=== PATIENT | female | born 1965 | race Caucasian/White ===

== ENCOUNTER 2022-01-22 10:10 | Outpatient (REF) | payer BC, SELFPAY ==
[2022-01-22 14:06] LABS: Free T4 (Free Thyroxine) 1.29 ng/dL (0.71-1.85); Thyroid Stimulating Hormone 0.66 uIU/mL (0.32-4.0)
== END 2022-01-22 10:11 | disposition home or self-care (01) ==
LOC: HO.WFDLDS 10:10
PROVIDERS: PCP Hospitalist; Visit Provider Pediatrics
DX: E06.3 Autoimmune thyroiditis (principal)
CPT/HCPCS: 36415; 84439; 84443

== ENCOUNTER 2022-02-21 10:03 | Outpatient (REF) | payer BC, SELFPAY ==
[2022-02-21 12:01] LABS: Estimated Average Glucose 111 mg/dL; Hemoglobin A1c % 5.5 %
[2022-02-21 12:28] LABS: Alanine Aminotransferase 33 U/L (0-31); Albumin Level 4.7 g/dL (3.5-5.0); Alkaline Phosphatase 92 U/L (39-117); Anion Gap 16 (12-20); Aspartate Amino Transferase 24 U/L (5-31); Bilirubin Total 0.4 mg/dL (0.0-1.0); Blood Urea Nitrogen 20 mg/dL (9-16); Calcium 10.1 mg/dL (8.4-10.2); Carbon Dioxide 26 mmol/L (22-29); Chloride 103 mmol/L (96-108); Cholesterol 230 mg/dL; Estimated Glomerular Filt Rate > 60; Glucose Fasting 92 mg/dL (60-99); HDL Cholesterol 55 mg/dL; LDL Cholesterol Calculated 151 mg/dl; Potassium 4.8 mmol/L (3.3-5.1); Sodium 140 mmol/L (135-145); Total Protein 7.4 g/dL (6.5-8.0); Triglycerides 120 mg/dL
[2022-02-21 12:33] LABS: Thyroid Stimulating Hormone 0.45 uIU/mL (0.32-4.0)
[2022-02-21 13:30] LABS: Folate > 20.0 ng/mL (> or = 4.0); Vitamin B12 727 pg/mL (200-900)
== END 2022-02-21 10:04 | disposition home or self-care (01) ==
LOC: HO.WFDLDS 10:03
PROVIDERS: Visit Provider Internal Medicine Endocrinology, Diabetes & Metabolism
DX: E88.81 Metabolic syndrome and other insulin resistance (principal); E06.3 Autoimmune thyroiditis
CPT/HCPCS: 36415; 80053; 80061; 82607; 82746; 83036; 84443

== ENCOUNTER 2022-05-28 11:34 | Outpatient (REF) | payer BC, SELFPAY ==
[2022-05-28 14:19] LABS: Cholesterol 220 mg/dL; Estimated Average Glucose 111 mg/dL; HDL Cholesterol 51 mg/dL; Hemoglobin A1c % 5.5 %; LDL Cholesterol Calculated 135 mg/dl; Triglycerides 172 mg/dL
[2022-05-28 14:43] LABS: Thyroid Stimulating Hormone 0.79 uIU/mL (0.32-4.0)
== END 2022-05-28 11:35 | disposition home or self-care (01) ==
LOC: HO.WFDLDS 11:34
PROVIDERS: Visit Provider Internal Medicine Endocrinology, Diabetes & Metabolism
DX: E06.3 Autoimmune thyroiditis (principal); E88.81 Metabolic syndrome and other insulin resistance
CPT/HCPCS: 36415; 80061; 83036; 84443

== ENCOUNTER 2022-10-25 10:11 | Outpatient (REF) | payer BC, SELFPAY ==
[2022-10-25 11:46] LABS: Estimated Average Glucose 114 mg/dL; Hemoglobin A1c % 5.6 %
[2022-10-25 12:04] LABS: Alanine Aminotransferase 30 U/L (0-31); Albumin Level 4.3 g/dL (3.5-5.0); Alkaline Phosphatase 62 U/L (39-117); Anion Gap 15 (12-20); Aspartate Amino Transferase 27 U/L (5-31); Bilirubin Total 0.4 mg/dL (0.0-1.0); Blood Urea Nitrogen 17 mg/dL (9-16); Calcium 9.7 mg/dL (8.4-10.2); Carbon Dioxide 26 mmol/L (22-29); Chloride 105 mmol/L (96-108); Cholesterol 187 mg/dL; Estimated Glomerular Filt Rate > 60; Glucose Random 95 mg/dL (60-115); HDL Cholesterol 52 mg/dL; LDL Cholesterol Calculated 112 mg/dl; Potassium 4.8 mmol/L (3.3-5.1); Sodium 141 mmol/L (135-145); Total Protein 6.7 g/dL (6.5-8.0); Triglycerides 117 mg/dL
[2022-10-25 12:06] LABS: Thyroid Stimulating Hormone 0.46 uIU/mL (0.32-4.0)
[2022-10-29 13:48] LABS: Alpha Fetoprotein 3.9 ng/mL
== END 2022-10-25 10:12 | disposition home or self-care (01) ==
LOC: HO.WFDLDS 10:11
PROVIDERS: PCP Hospitalist; Visit Provider Internal Medicine Endocrinology, Diabetes & Metabolism
DX: E88.81 Metabolic syndrome and other insulin resistance (principal); E06.3 Autoimmune thyroiditis
CPT/HCPCS: 36415; 80053; 80061; 82105; 83036; 84443

== ENCOUNTER 2023-08-13 09:31 | Outpatient (REF) | payer BC, SELFPAY ==
[2023-08-13 12:09] LABS: Anion Gap 11 (12-20); Blood Urea Nitrogen 17 mg/dL (9-16); Calcium 9.4 mg/dL (8.4-10.2); Carbon Dioxide 28 mmol/L (22-29); Chloride 105 mmol/L (96-108); Cholesterol 226 mg/dL (<200); Estimated Glomerular Filt Rate > 60; Glucose Random 104 mg/dL (60-115); HDL Cholesterol 55 mg/dL (>40); LDL Cholesterol Calculated 141 mg/dL (<100); Potassium 4.5 mmol/L (3.3-5.1); Sodium 139 mmol/L (135-145); Triglycerides 152 mg/dL (<150)
== END 2023-08-13 09:32 | disposition home or self-care (01) ==
LOC: HO.WFDLDS 09:31
PROVIDERS: Visit Provider Internal Medicine Endocrinology, Diabetes & Metabolism
DX: E06.3 Autoimmune thyroiditis (principal); E66.01 Morbid (severe) obesity due to excess calories
CPT/HCPCS: 36415; 80048; 80061; 84443

== ENCOUNTER 2023-10-01 14:38 | Outpatient (AMB) | payer BC, SELFPAY ==
--- NOTE | 2023-10-01 14:42 | A.OFFPC_ITS ---
Vital Signs 10/01/23 14:43 Height 5 ft 4 in Weight 183 lb 2 oz BMI 31.4 BP 118/84 Blood Pressure Location Rt brachial Position Sitting Respiration 13 Pulse 76 Pulse Source Pulse Oximeter Temp 97.4 F Temp Source Temporal Artery Scan Pulse Oximetry (%) 99 Oxygen Delivery Method Room Air Intake Visit Reasons: trans of care from [employer] [facility] Required: No Accompanied by: Self / Same As Patient Allergies Sulfa (Sulfonamide Antibiotics) Allergy (Intermediate, Verified 10/01/23 15:05) Hives Medication List - Last Reconciled 10/01/23 by Glenys Moran CNP levothyroxine 150 mcg PO DAILY metformin 500 mg PO TID Tobacco use date assessed: 10/01/23 Dental Screening Dental Screen Date: 10/01/23 Did you have a dental visit in the last 12 months?: Yes Did you have a dental problem in the last 6 months where you did not have access to dental care?: No Was dental information given to patient?: Patient has dentist HPI HPI Comments History of Present Illness Details 58-year-old female presents for transfer of care Her former PCP is DENYS who is no longer with the practice. Her last physical exam was in February 2022. She had CMP blood work done in May 2023; would unremarkable findings except for slightly elevated triglycerides, total cholesterol, and LDL, 152, 226, and 141 respectively She has history of hypothyroidism and prediabetes. She is currently on metformin 500 mg 3 times daily. She stopped taking Mounjaro 4-5 months ago due to discontinued coverage by her health plan. She gained 10 lb after she stopped taking the medication. She started taking Zepbound weekly SC injection 3 weeks ago. She is followed by Dr. Queen, endocrinology in [place] twice yearly for prediabetes and hypothyroidism. She notes that her A1c has been controlled; she does not recall her last level She notes that she has bee amitriptyline on and off for depression and insomnia. She notes that she started taking the medication a month ago after 8 months of not taking it. She requests a refill of the medication Her last mammogram was on 12/31/2022: Normal She notes that she consumes 3-4 low alcohol beers 2-3 times a week and has been drinking for several years. Nonsmoker. No drugs [facility] Medical History Pre-diabetes Hypothyroidism Surgical History No pertinent past surgical history Family History Father Diabetes No family history of mental disorder Mother No family history of mental disorder Social History Household Members: Spouse and Children Both parents involved: No Housing: House Are you a primary career professional to a significant other at home: No Do you presently have visiting nurse or other home services: No 75 years or older and lives alone: No Alcohol intake: current Patient Tobacco Use Status: Former Tobacco user e-Cigarette/Vaping Use: Never Used service: No Current occupational status: employed Current occupation: House Cleaning Cognitive needs: No Hearing needs: No Vision needs: No Questionnaire PHQ-9 Over the last 2 weeks, how often have you been bothered by any of the following problems? 1. Little interest or pleasure in doing things: not at all 2. Feeling down, depressed, or hopeless: not at all 3. Trouble falling or staying asleep, or sleeping too much: nearly every day 4. Feeling tired or having little energy: not at all 5. Poor appetite or overeating: not at all 6. Feeling bad about yourself - or that you are a failure or have let yourself or your family down: not at all 7. Trouble concentrating on things, such as reading the newspaper or watching television: not at all 8. Moving or speaking so slowly that other people could have noticed. Or the opp osite - being so fidgety or restless that you have been moving around a lot more than usual: not at all 9. Thoughts that you would be better off or of hurting yourself in some way: not at all Total score: 3 Depression Screening Interpretation: Negative Depression Screening Done: Yes 74585 - PHQ-9 Billing: Yes Source: Developed by Drs. Andrea Agosto, Arlyn Bai, Chavez Esquivel and colleagues, with an educational dio from [employer]. Thrive Questionnaire Date Thrive assessed: 10/01/23 I am a: Patient What is your living situation today?: I have a steady place to live Within the past 12 months, did the food you bought not last and you didn't have the money to get more?: Never true Within the past 12 months, did you worry whether your food would run out before you got money to buy more?: Never true Do you have trouble paying for medicines?: No Do you have trouble getting transportation to medical appointments?: No Do you have trouble paying your heating and electricity bill?: No Do you have trouble taking care of your child, family member or friend?: No Do you have trouble with day-to-day activities such as bathing, preparing meals, shopping, managing finances, etc.?: No Are you currently unemployed and looking for a job?: No Are you interested in more education?: No Please select the resources that you would like help with: None AUDIT C Alcohol Use Questionnaire (AUDIT-C) 1. How often do you have a drink containing alcohol?: 2-3 times a week 2. How many drinks containing alcohol do you have on a typical day when you are drinking?: 3 or 4 3. How often do you have six or more drinks on one occasion?: Less than monthly Total Score: 5 DIANE-7 AMB Questionnaire DIANE-7 Date DIANE - 7 assessed: 10/01/23 Feeling nervous, anxious, or on edge: 0 = Not at all Not being able to stop or control worryin = Not at all Worrying too much about different things: 0 = Not at all Trouble relaxin = Several days Being so restless that it is hard to sit still: 1 = Several days Becoming easily annoyed or irritable: 2 = More than half the days Feeling afraid as if something awful might happen: 0 = Not at all Total DIANE-7 score (0-4 normal; 5-9 mild; 10-14 moderate; 15-21 severe): 4 Source: Developed by Drs. Andrea Agosto, Arlyn Bai, Chavez Esquivel and colleagues, with an educational dio from [employer]. DIANE-7 Assessment Billing DIANE-7 Assessment Tool: DIANE-7 Assessment 58025 Review of Systems Const Details: Const Denies chills, Denies fatigue, Denies fever(s), Denies headache(s) and Denies weakness ENT Denies dizziness and Denies headache(s) Card Denies chest pain, Denies lightheadedness, Denies dyspnea and Denies other (Palpitations) Resp Denies cough, Denies dyspnea, Denies wheezing and Denies other ( shortness of breath) GI Denies abdominal pain, Denies melena, Denies hematochezia, Denies change in bowel habits, Denies dyspepsia and Denies nausea Denies hematuria and Denies dysuria Musc Denies abnormal gait, Denies myalgias, Denies arthralgias, Denies numbness and Denies tingling Skin/Breast Denies rash, Denies unusual bruising and Denies wounds Neuro Denies abnormal gait, Denies dizziness, Denies headache(s), Denies memory loss, Denies numbness, Denies Sensory deficit (Neuro), Denies tingling and Denies weakness Psych Denies anxiety, Denies depression, Denies memory loss Endo Denies cold intolerance, Denies fatigue, Denies heat intolerance, Denies polydipsia and Denies polyuria Aller/Immun Denies wheezing Physical exam (Primary Care) Vital Signs: Last Vital Signs Temp 97.4 F 10/01/23 14:43 Pulse 76 10/01/23 14:43 Resp 13 10/01/23 14:43 BP 118/84 10/01/23 14:43 Pulse Ox 99 10/01/23 14:43 Oxygen Delivery Method Room Air 10/01/23 14:43 BMI result Body Mass Index 31.4 Tobacco/Smoking Status: Tobacco use Status Tobacco use date assessed 10/01/23 10/01/23 14:54 Patient Tobacco Use Status Former Tobacco user 10/01/23 14:54 e-Cigarette/Vaping Use Never Used 10/01/23 14:54 PHQ-9: PHQ-9 Score PHQ-9: Total score 3 10/01/23 14:54 Depression Screening Interpretation: Negative Thrive Assessment: Date of Thrive Assessment Date Thrive assessed 10/01/23 10/01/23 14:54 Const Other: General: no acute distress and well developed Nutritional Appearance: well nourished Orientation/consciousness: patient oriented x3 HENMT Head: Yes normocephalic and Yes atraumatic Eyes General: appearance normal, both eyes and all related structures Pupils: Equal, round and reactive pupils present EOM: EOMs intact bilaterally Resp Effort & Inspection: normal respiratory effort Auscultation: clear to auscultation bilaterally Cardio Rate: regular rate Rhythm: regular rhythm Heart sounds: S1 normal heart sound present, S2 normal heart sound present, no gallops, no murmurs and no rubs GI Palpation (GI): No Abdominal aortic bruit present, Soft to palpation, nontender, No hepatosplenomegaly present and No Rebound tenderness present Auscultation: normal bowel sounds General: Yes no CVA tenderness Back/Spine/Pelvis Back: no CVA tenderness Cervical Spine: cervical ROM normal and No Cervical spine tenderness Thoracic/Lumbar Spine: thoraco-lumbar ROM normal, No pain with thoraco-lumbar ROM, No thoracic spinal tenderness and No lumbar spinal tenderness Extrem General: Yes normal to inspection, No edema and No calf tenderness Skin General: warm and dry. Normal skin color. Normal skin turgor Neuro General: patient oriented x3, gait normal and no focal neuro deficit Cranial nerves: Yes Equal, round and reactive pupils present Cognition (Neuro): normal cognition Gait exam (Neuro): Normal gait present Sensory Exam: No Sensory deficit (Neuro) Psych Appearance: grossly normal Affect: normal affect Attitude: cooperative Thought process: Normal thought process present Assessment and Plan Assessment & Plan (1) Pre-diabetes: Code(s): R73.03 - Prediabetes Plan: She notes she is followed by endocrinology and her A1c has been controlled Continue current treatment regimen ADA diet and routine exercise encouraged Follow-up with endocrinology as planned Follow-up in 1 month for an extended physical exam or return sooner with symptoms or concerns Verbalized understanding and agreed with treatment plan (2) Hypothyroidism: Code(s): E03.9 - Hypothyroidism, unspecified Plan: Recent TSH level was normal She notes that she is followed by endocrinology Continue current treatment regimen Follow-up with symptoms or concerns Verbalized understanding and agreed with treatment plan (3) Hyperlipidemia: Code(s): E78.5 - Hyperlipidemia, unspecified Plan: Recent lab results revealed slightly elevated triglycerides, total cholesterol, and LDL, 152, 226, and 141 respectively Not currently on medication She notes she is followed by endocrinology who monitors her cholesterol levels Advised to limit foods high in saturated fat and avoid foods high in trans fat Routine exercise encouraged Follow-up with symptoms or concerns Verbalized understanding and agreed with treatment plan (4) Depression: Code(s): F32.A - Depression, unspecified Plan: Reports history depression and insomnia Amitriptyline has been effective in promoting sleep PHQ-9 and DIANE-7 scores are normal Amitriptyline ordered. Take as prescribed Instructed on sleep hygiene Follow-up with worsening or new symptoms Verbalized understanding and agreed with treatment plan (5) Insomnia: Code(s): G47.00 - Insomnia, unspecified Plan: As above (6) Laboratory tests ordered as part of a complete physical exam (CPE): Code(s): Z00.00 - Encounter for general adult medical examination without abnormal findings Plan: Fasting labs ordered as part of a complete physical exam. Advised to fast for at least 10 hours before getting labs drawn. May drink water Verbalized understanding and agreed with treatment plan. Orders: Orders Complete Blood Count no Diff Today Z00.00 - Encounter for general adult medical examination without abnormal findings Medications: New amitriptyline 10 mg PO BEDTIME 30 tabs 0RF 30 days Coding Level of Care Code Est Pt Level 4 (56328) Diagnoses Pre-diabetes R73.03 Hypothyroidism E03.9 Hyperlipidemia E78.5 Depression F32.A Insomnia G47.00 Laboratory tests ordered as part of a complete physical exam (CPE) Z00.00 Additional Codes DIANE-7 Assessment Billing - DIANE-7 Assessment Tool: DIANE-7 Assessment 87310 ([id number])
[2023-10-01 14:43] VITALS: BP 118/84; PULSE 76; RESP 13; TEMP 36.3; O2SAT 99; BMI 31.4
== END 2023-10-01 15:27 | disposition home or self-care (01) ==
PROVIDERS: PCP Hospitalist; Visit Provider Nurse Practitioner Family
DX: R73.03 Prediabetes (principal); E03.9 Hypothyroidism, unspecified; E78.5 Hyperlipidemia, unspecified; F32.A Depression, unspecified; G47.00 Insomnia, unspecified
CPT/HCPCS: 99214

== ENCOUNTER 2024-03-10 08:57 | Outpatient (REF) | payer BC, SELFPAY ==
[2024-03-10 11:50] LABS: Hematocrit 39.5 % (37.0-47.0); Hemoglobin 13.2 g/dl (12.0-16.0); Mean Corpuscular HGB Conc 33.4 g/dl (31.0-35.0); Mean Corpuscular Volume 92.7 fL (80.0-98.0); Mean Platelet Volume 11.3 fL (9.4-12.3); Platelet Count 280 X10*3/uL (160-400); Red Blood Count 4.26 X10*6/uL (4.20-5.50); Red Cell Distribution Width 12.6 % (11.0-16.0); White Blood Count 4.5 X10*3/uL (4.8-10.8)
[2024-03-10 12:24] LABS: Thyroid Stimulating Hormone 2.58 uIU/mL (0.32-4.0)
== END 2024-03-10 08:58 | disposition home or self-care (01) ==
LOC: HO.WFDLDS 08:57
PROVIDERS: Internal Medicine Endocrinology, Diabetes & Metabolism; Visit Provider Nurse Practitioner Family
DX: Z00.00 Encounter for general adult medical examination without abnormal findings (principal); E06.3 Autoimmune thyroiditis
CPT/HCPCS: 36415; 84443; 85027

== ENCOUNTER 2024-05-26 10:41 | Outpatient (AMB) | payer BC, SELFPAY ==
--- NOTE | 2024-05-26 10:42 | MHC.OFFWIV ---
Intake Vital Signs 05/26/24 10:47 Height 5 ft 4 in Weight 180 lb 6 oz BMI 31.0 BP 115/64 Blood Pressure Location Rt brachial Position Sitting Respiration 14 Pulse 57 Pulse Source Pulse Oximeter Pulse Oximetry (%) 97 Oxygen Delivery Method Room Air Intake Visit Reasons: est/ rash elbows back of the leg Intake Note: patient complaining of rash both arms, and back of her left leg since last july. patient complaining of pain all over her body and locking of fingers x 2months Patient Tobacco Use Status: Former Tobacco user Allergies Sulfa (Sulfonamide Antibiotics) Allergy (Intermediate, Verified 05/26/24 10:51) Hives Medication List - Last Reconciled 05/26/24 by Denise Avery, [employer]- amitriptyline 10 mg PO BEDTIME 30 days levothyroxine 150 mcg PO DAILY metformin 500 mg PO TID Do you need a note to return to daycare/school/sports/work: No HPI HPI Comments History of Present Illness Details 59-year-old female here today with chief complaints of a rash and chronic joint pain. 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 She has been applying topical hydrocortisone, antibiotic ointment and rubbing alcohol to treat the area. Admits that the area comes and goes. She feels like it is triggered after exposure to certain dogs. Over the last few weeks she developed a rash in the bend of her right arm and then similar rash in the bend of her left arm. She does admit to lots of yard work and exposure to poison IV, and the like. Has been self treating with topical steroids. Has not had any improvement. She reports that the rash feels tight. States it looks like her skin has been burned. She did schedule an appointment with Dermatology however this initial consult is not until June. She is requesting a Lyme blood test today. She does report a history of Lyme in the past. 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 She denies fever, chills. Exam: Posterior left upper thigh there is a erythematous patch, with well-defined borders. It is approximately an inch in diameter. Surrounding skin is intact and clear. There was no bull's-eye. Bilat antecubitals is a faint pink macular rash. The area over the left AC is rough. There was no signs of infection. The surrounding skin is intact. Plan Advised for the patient to take pictures of these areas and follow up with Dermatology as scheduled in June. I will treat the posterior thigh rash with an antifungal as this does appear to be a fungal rash. I will prescribe a topical steroid cream to be used bilateral antecubitals. Lyme test ordered per her request. She has an upcoming appointment to establish care with a new primary care provider coming up later this month. Advised to keep this appointment follow up as needed. This note is constructed using voice recognition software. While every effort has been made to ensure accuracy in cylinder batcher, still errors may have been included Sometimes, these errors may affect the content or meaning of the given sentence . [facility] Medical History Pre-diabetes Hypothyroidism Surgical History No pertinent past surgical history Family History Father Diabetes No family history of mental disorder Mother No family history of mental disorder Social History Household Members: Spouse and Children Both parents involved: No Housing: House Are you a primary director of career services to a significant other at home: No Do you presently have visiting nurse or other home services: No 75 years or older and lives alone: No Alcohol intake: current Patient Tobacco Use Status: Former Tobacco user e-Cigarette/Vaping Use: Never Used service: No Current occupational status: employed Current occupation: House Cleaning Cognitive needs: No Hearing needs: No Vision needs: No Physical Exam Vital Signs: Last Vital Signs Pulse 57 05/26/24 10:47 Resp 14 05/26/24 10:47 BP 115/64 05/26/24 10:47 Pulse Ox 97 05/26/24 10:47 Oxygen Delivery Method Room Air 05/26/24 10:47 BMI result Body Mass Index 31.0 Assessment & Plan Assessment & Plan (1) Tinea corporis: Code(s): B35.4 - Tinea corporis Plan: . (2) Skin rash: Code(s): R21 - Rash and other nonspecific skin eruption Plan: . (3) History of Lyme disease: Code(s): Z86.19 - Personal history of other infectious and parasitic diseases Plan: . Orders: Orders Lyme IgG/IgM w/reflex to WB Today Z86.19 - Personal history of other infectious and parasitic diseases Medications: New ciclopirox 0.77% 1 appl topical BID 4 weeks 30 grams 0RF fluticasone propionate 0.05% 1 appl topical BID 30 grams 0RF Coding Level of Care Code Est Pt Level 4 (16365) Diagnoses Tinea corporis B35.4 Skin rash R21 History of Lyme disease Z86.19
[2024-05-26 10:47] VITALS: BP 115/64; PULSE 57; RESP 14; O2SAT 97; BMI 31.0
== END 2024-05-26 11:02 | disposition home or self-care (01) ==
PROVIDERS: PCP Nurse Practitioner Family; Visit Provider Nurse Practitioner Family
DX: B35.4 Tinea corporis (principal); R21 Rash and other nonspecific skin eruption; Z86.19 Personal history of other infectious and parasitic diseases
CPT/HCPCS: 99214

== ENCOUNTER 2024-05-26 11:26 | Outpatient (REF) | payer BC, SELFPAY ==
[2024-06-02 05:13] LABS: Lyme Abs Screen <0.90 index
== END 2024-05-26 11:27 | disposition home or self-care (01) ==
LOC: HO.WFDLDS 11:26
PROVIDERS: Visit Provider Nurse Practitioner Family
DX: Z86.19 Personal history of other infectious and parasitic diseases (principal)
CPT/HCPCS: 36415; 86617; 86618

== ENCOUNTER 2024-07-07 14:46 | Outpatient (AMB) | payer BC, SELFPAY ==
--- NOTE | 2024-07-07 14:57 | MHC.PC.OV ---
Vital Signs 07/07/24 14:59 Height 5 ft 4 in Weight 175 lb 8 oz BMI 30.1 BP 104/62 Blood Pressure Location Rt brachial Position Sitting Respiration 14 Pulse 72 Pulse Source Pulse Oximeter Pulse Oximetry (%) 96 Oxygen Delivery Method Room Air Intake Visit Reasons: CPE Transfer of care from [facility] Intake Note: New patient visit Allergies Sulfa (Sulfonamide Antibiotics) Allergy (Intermediate, Verified 07/07/24 14:57) Hives Tobacco use date assessed: 07/07/24 Dental Screening Dental Screen Date: 07/07/24 Did you have a dental visit in the last 12 months?: Yes Did you have a dental problem in the last 6 months where you did not have access to dental care?: No Was dental information given to patient?: Patient has dentist HPI HPI Comments History of Present Illness Details 59-year-old female with a past medical history of prediabetes, hypothyroid, hyperlipidemia, depression, anxiety presenting to [facility] as an internal transfer. Previously seeing Janelle Lowery Endocrinology: Following with Dr Yennifer Queen for hypothyroidism and prediabetes. On levothyroxine 150mcg daily, metformin 1000mg twice daily. Continues on Zepbound. A1C, TSH followed by that provider. CV: History of bicuspid aortic valvue, ?ascending aortic aneurysm. Follows with Dr Solomon. Gets echos biannually. BH: Currently off medications. On amitriptyline on and off for depression and insomnia. Her last mammogram was 12/2023 Overdue auto overhauler-referral placed today Dr Delacruz office cardiology ROS CONSTITUTIONAL: Denies weight loss, fever and chills. HEENT: Denies changes in vision and hearing. RESPIRATORY: Denies SOB and cough. CV: Denies palpitations and CP GI: Denies abdominal pain, nausea, vomiting and diarrhea. : Denies dysuria and urinary frequency. MSK: Denies new myalgia and joint pain. SKIN: Denies rash and pruritus. NEUROLOGICAL: Denies headache PSYCHIATRIC: Denies recent changes in mood. PHYSICAL EXAM: GENERAL: Alert and oriented x 3. NAD EYES: EOMI. Anicteric. HENT: Moist mucous membranes. No scleral icterus. No cervical lymphadenopathy. LUNGS: Clear to auscultation bilaterally. CARDIOVASCULAR: Regular rate and rhythm. +systolic murmur . No JVD. ABDOMEN: Soft, non-tender +bs EXTREMITIES: No edema. Non-tender. SKIN: No rashes or lesions. Warm. NEUROLOGIC: No focal neurological deficits. CN II-XII grossly intact PSYCHIATRIC: Cooperative. Appropriate mood and affect [facility] Medical History Pre-diabetes Hypothyroidism Surgical History No pertinent past surgical history Family History Father Diabetes No family history of mental disorder Mother No family history of mental disorder Social History Household Members: Spouse and Children Both parents involved: No Housing: House Are you a primary clinical care manager to a significant other at home: No Do you presently have visiting nurse or other home services: No 75 years or older and lives alone: No Alcohol intake: current Patient Tobacco Use Status: Former Tobacco user e-Cigarette/Vaping Use: Never Used service: No Current occupational status: employed Current occupation: House Cleaning Current occupational exposures/hazards: No Cognitive needs: No Hearing needs: No Vision needs: No Questionnaire PHQ-9 Over the last 2 weeks, how often have you been bothered by any of the following problems? 1. Little interest or pleasure in doing things: not at all 2. Feeling down, depressed, or hopeless: not at all 3. Trouble falling or staying asleep, or sleeping too much: several days 4. Feeling tired or having little energy: not at all 5. Poor appetite or overeating: not at all 6. Feeling bad about yourself - or that you are a failure or have let yourself or your family down: not at all 7. Trouble concentrating on things, such as reading the newspaper or watching television: not at all 8. Moving or speaking so slowly that other people could have noticed. Or the opposite - being so fidgety or restless that you have been moving around a lot more than usual: not at all 9. Thoughts that you would be better off or of hurting yourself in some way: not at all Total score: 1 Depression Screening Interpretation: Negative Depression Screening Done: Yes 18757 - PHQ-9 Billing: Yes Source: Developed by Drs. Andrea Agosto, Arlyn Bai, Chavez Esquivel and colleagues, with an educational dio from [employer]. Thrive Questionnaire Date Thrive assessed: 07/07/24 I am a: Patient What is your living situation today?: I have a steady place to live Within the past 12 months, did the food you bought not last and you didn't have the money to get more?: Never true Within the past 12 months, did you worry whether your food would run out before you got money to buy more?: Never true Do you have trouble paying for medicines?: No Do you have trouble getting transportation to medical appointments?: No Do you have trouble paying your heating and electricity bill?: No Do you have trouble taking care of your child, family member or friend?: No Do you have trouble with day-to-day activities such as bathing, preparing meals, shopping, managing finances, etc.?: No Are you currently unemployed and looking for a job?: No Are you interested in more education?: No Please select the resources that you would like help with: None Currently or been in a relationship where the following occur: No concerns reported THRIVE Score: 0 AUDIT C Alcohol Use Questionnaire (AUDIT-C) 1. How often do you have a drink containing alcohol?: 2-3 times a week 2. How many drinks containing alcohol do you have on a typical day when you are drinking?: 3 or 4 3. How often do you have six or more drinks on one occasion?: Never Total Score: 4 DIANE-7 AMB Questionnaire DIANE-7 Date DIANE - 7 assessed: 07/07/24 Feeling nervous, anxious, or on edge: 0 = Not at all Not being able to stop or control worryin = Not at all Worrying too much about different things: 0 = Not at all Trouble relaxin = Not at all Being so restless that it is hard to sit still: 0 = Not at all Becoming easily annoyed or irritable: 0 = Not at all Feeling afraid as if something awful might happen: 0 = Not at all Total DIANE-7 score (0-4 normal; 5-9 mild; 10-14 moderate; 15-21 severe): 0 Source: Developed by Drs. Andrea Agosto, Arlyn Bai, Chavez Esquivel and colleagues, with an educational dio from [employer]. DIANE-7 Assessment Billing DIANE-7 Assessment Tool: DIANE-7 Assessment 50471 Physical exam (Primary Care) Vital Signs: Last Vital Signs Pulse 72 07/07/24 14:59 Resp 14 07/07/24 14:59 BP 104/62 07/07/24 14:59 Pulse Ox 96 07/07/24 14:59 Oxygen Delivery Method Room Air 07/07/24 14:59 BMI result Body Mass Index 30.1 Tobacco/Smoking Status: Tobacco use Status Tobacco use date assessed 07/07/24 07/07/24 14:59 Patient Tobacco Use Status Former Tobacco user 07/07/24 14:59 e-Cigarette/Vaping Use Never Used 07/07/24 14:59 PHQ-9: PHQ-9 Score PHQ-9: Total score 1 07/07/24 15:25 Depression Screening Interpretation: Negative Thrive Assessment: Date of Thrive Assessment Date Thrive assessed 07/07/24 07/07/24 15:03 Currently or been in a relationship where the following occur: No concerns reported Coding Level of Care Code Est Pt Level 4 (53359) Complex EM visit Add On G2211 Diagnoses Pre-diabetes R73.03 Hypothyroidism, unspecified type E03.9 Hypothyroidism type: unspecified Depression, unspecified depression type F32.A Depression Type: unspecified Chronic low back pain, unspecified back pain laterality, unspecified whether sciatica present M54.50; G89.29 Chronicity: chronic Back pain laterality: unspecified Sciatica presence: unspecified whether sciatica present Eczema, unspecified type L30.9 Eczema type: unspecified Additional Codes DIANE-7 Assessment Billing - DIANE-7 Assessment Tool: DIANE-7 Assessment 34499 ([id number]) Assessment & Plan Assessment & Plan (1) Pre-diabetes: Code(s): R73.03 - Prediabetes Category: Medical Plan: Continue current medications Continues endocrine follow up (2) Hypothyroidism: Code(s): E03.9 - Hypothyroidism, unspecified Category: Medical Qualifiers: Hypothyroidism type: unspecified Qualified Code(s): E03.9 - Hypothyroidism, unspecified Plan: Clinically and biochemically euthyroid (3) Depression: Code(s): F32.A - Depression, unspecified Category: Medical Qualifiers: Depression Type: unspecified Qualified Code(s): F32.A - Depression, unspecified Plan: Mild depression, anxiety. Managed off medications (4) Low back pain: Code(s): M54.50 - Low back pain, unspecified Category: Medical Qualifiers: Chronicity: chronic Back pain laterality: unspecified Sciatica presence: unspecified whether sciatica present Qualified Code(s): M54.50 - Low back pain, unspecified; G89.29 - Other chronic pain Plan: Intermittent flares. None at present (5) Eczema: Code(s): L30.9 - Dermatitis, unspecified Category: Medical Qualifiers: Eczema type: unspecified Qualified Code(s): L30.9 - Dermatitis, unspecified Plan: continues follow up with dermatology Orders: Orders Comprehensive Met. Panel 07/07/24 E03.9 - Hypothyroidism, unspecified, E78.5 - Hyperlipidemia, unspecified, R73.03 - Prediabetes, Z13.0 - Encounter for screening for diseases of the blood and blood-forming organs and certain disorders involving the immune mechanism TSH reflex Free T4 07/07/24 E03.9 - Hypothyroidism, unspecified, E78.5 - Hyperlipidemia, unspecified, R73.03 - Prediabetes, Z13.0 - Encounter for screening for diseases of the blood and blood-forming organs and certain disorders involving the immune mechanism Hemoglobin A1c 07/07/24 E03.9 - Hypothyroidism, unspecified, E78.5 - Hyperlipidemia, unspecified, R73.03 - Prediabetes, Z13.0 - Encounter for screening for diseases of the blood and blood-forming organs and certain disorders involving the immune mechanism Complete Blood Count Auto Diff 07/07/24 E03.9 - Hypothyroidism, unspecified, E78.5 - Hyperlipidemia, unspecified, R73.03 - Prediabetes, Z13.0 - Encounter for screening for diseases of the blood and blood-forming organs and certain disorders involving the immune mechanism Lipid Panel 07/07/24 E03.9 - Hypothyroidism, unspecified, E78.5 - Hyperlipidemia, unspecified, R73.03 - Prediabetes, Z13.0 - Encounter for screening for diseases of the blood and blood-forming organs and certain disorders involving the immune mechanism Referrals CONTROL SYSTEMS DEVELOPER Referral Z12.4 - Encounter for screening for malignant neoplasm of cervix
[2024-07-07 14:59] VITALS: BP 104/62; PULSE 72; RESP 14; O2SAT 96; BMI 30.1
== END 2024-07-07 15:43 | disposition home or self-care (01) ==
PROVIDERS: PCP Nurse Practitioner Family; Visit Provider Internal Medicine
DX: R73.03 Prediabetes (principal); E03.9 Hypothyroidism, unspecified; F32.A Depression, unspecified; M54.50 Low back pain, unspecified; G89.29 Other chronic pain; L30.9 Dermatitis, unspecified

== ENCOUNTER → 2024-07-07 14:46 | Outpatient (BNVA) | payer BC, SELFPAY | PROVIDERS: PCP Nurse Practitioner Family; Visit Provider Internal Medicine | DX: R73.03 Prediabetes (principal); E03.9 Hypothyroidism, unspecified; F32.A Depression, unspecified; G89.29 Other chronic pain; M54.50 Low back pain, unspecified; L30.9 Dermatitis, unspecified | CPT/HCPCS: 96127 ==

== ENCOUNTER 2024-09-17 10:42 | Outpatient (REF) | payer BC, SELFPAY ==
--- OUTSIDE RECORDS SUMMARY | 2024-09-17 11:17 | XMS_ITS | Continuity of Care Document ---
Author Organization [facility] Address [address] [place], [place] Phone [phone] Care Team Providers Care Is Analyst Name Role Phone Janelle Lowery DNP Care Team Information Recei dhiraj Unavailable YENNIFER QUEEN M.D. Care Team Information Rec eiver Unavailable Janelle Lowery DNP Primary Care Physician Unav ailable Problems Active Problems Provider Date Essential hypertension Yennifer Queen M.D. O nset: 09/02/2023 Metabolic syndrome X Yennifer Queen M.D. Ons et: 10/04/2021 Obesity Yennifer Queen M.D. Onset: 0 05/24/2021 Jenna thyroiditis Yennifer Queen M.D. On set: 05/24/2021 Social History Type Date Description Comments Sex Unknown Allergies and adverse reactions Active Allergies Criticality Reaction Severity Comments Date Sulfa Unable to assess criticality 05/24/2021 Medications Active Medications SIG Qnty Indications Order ing Provider Date Ygndyvsa5js/0.5ML Solution Auto-Inject administer 5 mg under the skin 1 time a week 6ml E06.3 Yennifer Queen M.D. 07/24/2024 Levothyroxine Jwrfyn129eys Tablets Take 1 Tablet By Mouth On 2 Days Of The Week Alternate With The 150 mcg 45tabs Yennifer Queen M.D. 04/15/2023 Wellbutrin ZB785kh Tablets ER 12HR 1 tab by mouth every day 30tabs Yennifer Queen M.D. 11/05/2022 BD Pen Needle/Mini/Ultra-Fin e/31G X 5mm31G X 5 mm Misc 1 needle tip one time a day 100units E88.81 Yennifer Queen M.D. 10/30/2022 Levothyroxine Ouzzvd423rsg Tablets Take 1 Tablet by mouth on 5days a week(alternates with 137's) 90tabs Yennifer Queen M.D. 12/05/2021 Metformin HCL PB458nn Tablets ER 24HR Take 2 Tablets Twice A Day 360tabs E66.9 Yennifer Queen M.D. 05/24/2021 Multivitamin AdultTablets 1 by mouth every day Unknown Aspirin Adult Low Qvaa81rk Tablets DR 1 by mouth every day Unknown Amitriptyline LLE91al Tablets 1 tab by mouth every night Unknown Vit C 500 bid->less in summer Unknown Jcnbhxe434/D 1 bid Unknown 000 Tumeric Unknown Glucosamine Unknown 00 Vitamin B-ComplexTablets 1 by mouth every day Unknown History Medications Zabxjdmq08rm/0.5ML Solution Auto-Inject inject 10mg subcutaeously weekly 6ml E06.3 Yennifer Queen M.D. 07/20/2024 - 07/24/2024 Zepbound7.5mg/0.5ML Solution Auto-Inject administer 7.5 mg under the skin 1 time a week 6ml E06.3 Yennifer Queen M.D. 05/27/2024 - 07/20/2024 Akkuprjb5lb/0.5ML Solution Auto-Inject administer 5 mg under the skin 1 time a week 6ml E06.3 Yennifer Queen M.D. 03/30/2024 - 05/27/2024 Zepbound2.5mg/0.5ML Solution Auto-Inject inject 2.5mg subcutaneously once a week 2ml E06.3 Yennifer Queen M.D. 03/04/2024 - 03/30/2024 Zepbound7.5mg/0.5ML Solution Auto-Inject administer 7.5 mg under the skin 1 time a week 6ml E06.3 Yennifer Queen M.D. 01/09/2024 - 03/04/2024 Zfryxefb1oo/0.5ML Solution Auto-Inject administer 5 mg under the skin 1 time a week 4ml E06.3 Yennifer Queen M.D. 12/09/2023 - 01/09/2024 Zepbound7.5mg/0.5ML Solution Auto-Inject Administer 7.5 MG Under The Skin 1 Time A Week 6ml E06.3 Yennifer Queen M.D. 12/03/2023 - 12/09/2023 Axcjetwt0eb/0.5ML Solution Auto-Inject Administer 5 MG Under The Skin 1 Time A Week 2units E06.3 Yennifer Queen M.D. 10/02/2023 - 12/03/2023 Zepbound2.5mg/0.5ML Solution Auto-Inject inject 2.5mg subcutaneously once a week 2ml E06.3 Yennifer Queen M.D. 09/02/2023 - 10/02/2023 Wegovy0.25mg/0.5ML Solution Auto-Inject inject 0.25mg subcutaneously once a week 2ml Yennifer Queen M.D. 05/08/2023 - 09/02/2023 Tvqjrdnd1ob/0.5ML Solution Pen-Inject inject 5mg subcutaneously once a week 6ml Yennifer Queen M.D. 12/17/2022 - 05/15/2023 Mounjaro2.5mg/0.5ML Solution Pen-Inject 2.5mg subcutaneously q1week 2ml E88.81 Yennifer Queen M.D. 10/30/2022 - 11/05/2022 Misbuwysjk023il Capsules 1@am & 2@pm Unk nown - 11/16/2021 Levothyroxine Ruavzh935rfk Tablets 1 by mouth every day Unknown - 12/05/2021 Iepwafotej652sp Tablets Boogie Baca MD - 10/04/2021 Abztvyjjww675ac Capsules Boogie Hemphill MD - 10/04/2021
[2024-09-17 14:15] LABS: MANUAL DIFF FLAG NO
[2024-09-17 14:18] LABS: Basophils Absolute Auto 0.1 X10*3/uL (0.0-0.2); Basophils Percent Auto 1.4 % (0-2); Eosinophils Absolute Auto 0.1 X10*3/uL (0.0-0.4); Eosinophils Percent Auto 1.9 % (0-4); Hematocrit 39.2 % (37.0-47.0); Imm Gran Abs Auto 0.02 X10*3/uL (0.00-0.03); Imm Gran Pct Auto 0.5 % (0.0-0.4); Lymphocytes Absolute Auto 1.6 X10*3/uL (1.2-4.9); Lymphocytes Percent Auto 37.3 % (20-40); Mean Corpuscular HGB Conc 33.2 g/dl (31.0-35.0); Mean Corpuscular Hemoglobin 30.6 pg (27.0-33.0); Mean Corpuscular Volume 92.2 fL (80.0-98.0); Mean Platelet Volume 11.2 fL (9.4-12.3); Monocytes Absolute Auto 0.3 X10*3/uL (0.1-1.2); Monocytes Percent Auto 6.1 % (2-11); Neutrophils Absolute Auto 2.2 x10*3/uL (2.0-8.3); Neutrophils Percent Auto 52.8 % (45-73); Platelet Count 272 X10*3/uL (160-400); Red Blood Count 4.25 X10*6/uL (4.20-5.50); Red Cell Distribution Width 12.6 % (11.0-16.0); White Blood Count 4.2 X10*3/uL (4.8-10.8)
[2024-09-17 14:27] LABS: Estimated Average Glucose 108 mg/dL; Hemoglobin A1C 114.8535 umol/L; Hemoglobin A1c % 5.4 % (<6.0); Total Hemoglobin (HGBA1C) 3259.2543 umol/L
[2024-09-17 14:42] LABS: Alanine Aminotransferase 28 U/L (0-31); Albumin Level 4.2 g/dL (3.5-5.0); Alkaline Phosphatase 55 U/L (39-117); Anion Gap 11 (12-20); Aspartate Amino Transferase 29 U/L (5-31); Bilirubin Total 0.3 mg/dL (0.0-1.0); Blood Urea Nitrogen 15 mg/dL (9-16); Carbon Dioxide 27 mmol/L (22-29); Chloride 106 mmol/L (96-108); Cholesterol 199 mg/dL (<200); Estimated Glomerular Filt Rate > 60; Glucose Random 84 mg/dL (60-115); HDL Cholesterol 59 mg/dL (>40); LDL Cholesterol Calculated 120 mg/dL (<100); Potassium 4.4 mmol/L (3.3-5.1); Sodium 140 mmol/L (135-145); Total Protein 6.6 g/dL (6.5-8.0); Triglycerides 104 mg/dL (<150)
[2024-09-17 14:56] LABS: Thyroid Stimulating Hormone 2.04 uIU/mL (0.32-4.0)
== END 2024-09-17 10:43 | disposition home or self-care (01) ==
LOC: HO.WFDLDS 10:42
PROVIDERS: Internal Medicine Endocrinology, Diabetes & Metabolism; Visit Provider Internal Medicine
DX: E88.810 Metabolic syndrome (principal); E06.3 Autoimmune thyroiditis; Z13.1 Encounter for screening for diabetes mellitus
CPT/HCPCS: 36415; 80053; 80061; 83036; 84443; 85025

== ENCOUNTER 2025-03-26 11:13 | Outpatient (REF) | payer BC, SELFPAY ==
--- OUTSIDE RECORDS SUMMARY | 2025-03-26 11:49 | XMS_ITS | Patient Health Record ---
Author Organization [facility] Address [address] [address] Care Team Providers Care Switchboard Wire Worker Helper Name Role Phone MIKE CABRERA Primary Care Provider LAKHWINDER Shen Unavailable [phone] Allergies Allergen (clinical drug ingredient) Drug/Non Drug Allergy documented on EMR Reaction Allergy Type Onset Date Status Substance with sulfonamide structure and antibacterial mechanism of action (substance) Sulfa Antibiotics Rash Drug Allergy Active Reason For Referral No Information Medications Medication SIG (Take, Route, Frequency, Duration) Notes Start Date End Date Status Gabapentin 400 MG 1 capsule Orally Onc e a day; Duration: 30 day(s) BID Active Amitriptyline HCl 25 MG 1 tablet at bedt neo Orally Once a day; Duration: 30 day(s) Active Levothyroxine Sodium 150 MCG 1 tablet in the morning on an empty stomach Orally Once a day; Duration: 30 day(s) Active Social History Tobacco Use: Social History Observation Description Date Details (start date - stop date) Never Smoker NA - NA Tobacco Use/Smoking Question Answer Notes Are you a nonsmoker Alcohol Screen (Audit-C) Question Answer Notes Did you have a drink contain ing alcohol in the past year? Yes How often did you have a dri nk containing alcohol in the past year? 4 or more times a week (4 points) How many drinks did you have on a typical day when you were drinking in the past year? 5 or 6 drinks (2 points) How often did you have 6 or more drinks on one occasion in the past year? Weekly (3 points) Points 9 Interpretation Positive Problems Problem Type SNOMED Code ICD Code Onset Dates Problem Status W/U Status Risk Notes Problem Hypothyroidism (18459653) Hypothyroidism, unspecified (E03.9) Active confirmed Problem Other specified arthritis, unspecified site (M13.80) Active confirmed Problem Polymyalgia rheumatica (06919728) Polymyalgia rheumatica (M35.3) Active confirmed Plan Of Treatment Pending Test Test Name Order Date Urinalysis 05/09/2021 Insurance Providers Payer Name Payer Address Payer Phone Subscriber Number Group Number Insured Name Patient Relationship to Insured Coverage Start Date Coverage End Date [employer] [address] [place] [address] [id number] ALEX MULLER Self - patient is the insured Medical (General) History Medical History History ICD Code Hypothyroidism, unspecified E03.9 Other specified arthritis, unspecified s ite M13.80 Polymyalgia rheumatica M35.3 Surgical History Surgery Date(Month/Year) C- Sections 07/06/98-02/22/00 Sinus Surgery Rotator Cuff 09/19/2016 Hospitalization History Reason Date(Month/Year) See Surgical HX
--- OUTSIDE RECORDS SUMMARY | 2025-03-26 11:50 | XMS_ITS | Clinical Summary ---
Author Organization [facility] Address [address] [place] [address] Care Team Providers Care University Lecturer Name Role Phone Janelle Lowery Primary Care Provider [phone] Allergies Active Allergy Reactions Criticality Noted Date Comments Morphine Rash 05/28/2023 Sulfa (Sulfonamide Antibiotics) Unknown,Rash Medications amitriptyline (ELAVIL) 25 mg tablet every 24 hours. Acti ve buPROPion SR (WELLBUTRIN SR) 100 mg tablet SMARTSI Tablet(s) By Mouth Daily 3 Active cyclobenzaprine (FLEXERIL) 10 mg tablet SMARTSI Tablet(s) By Mouth 3 Times Daily PRN 2 Active levothyroxine (SYNTHROID, LEVOTHROID) 137 mcg tablet TAKE 1 TABLET BY MOUTH ON 2 DAYS OF THE WEEK ALTENATE WITH THE 150 MCG 3 Active gabapentin (NEURONTIN) 400 mg capsule 1 capsule every 24 hours. Active methylPREDNISol one (MEDROL DOSEPACK) 4 mg tablet FOLLOW PACKAGE DIRECTIONS 3 Active Mounjaro 5 mg/0.5 mL pen injector 3 Active Social History Tobacco Use Types Packs/Day Years Used Date Smoking Tobacco: Never Assessed Comments Unknown Sex and Gender Information Value Date Recorded Sex Assigned at Not on file Legal Sex Female 4:09 PM EDT Gender Identity Not on file Sexual Orientation Not on file Plan of Treatment Health Maintenance Due Date Last Done Comments Cervical Cancer Screening 1966 Cologuard 1966 Colon Cancer Screening 1966 Colonoscopy 1966 FOBT / Fit Test 1966 HIV Screening 1966 HPV and Pap Smear 1966 Hepatitis C Screening 1966 Pap Smear 1966 Sigmoidoscopy 1966 Hepatitis B Vaccines (1 of 3 - 19+ 3-dose series) 1985 Mammogram 2006 Pneumococcal Vaccine: 50+ Ye ars (1 of 1 - PCV) 2016 Zoster Vaccines (1 of 2) 2016 DTaP,Tdap,and Td Vaccines (2 - Td or Tdap) 11/29/2019 11/28/2009 COVID-19 Vaccine (5 - 2023-2 5 season) 2024 06/05/2022, 07/19/2021, 01/02/2021, Additional history exists Alcohol/Substance Use Screening 09/16/2024 Depression Screening and Follow-Up 09/16/2024 Social Drivers of Health Susan ual Screening 09/16/2024 Influenza Vaccine (#1) 2025 , 06/10/2018, 08/24/2016, Additional history exists RSV Vaccine (60+ years old a nd patients) (1 - 1-dose 75+ series) 2041 Insurance [facility] PPO/EPO Care Teams University Lecturer Relationship Specialty Start Date End Date Beverley Janelle [address] [place] [address] PCP - General 04/23/23
[2025-03-26 14:51] LABS: MANUAL DIFF FLAG NO
[2025-03-26 14:54] LABS: Hematocrit 40.1 % (37.0-47.0); Hemoglobin 13.8 g/dl (12.0-16.0); Imm Gran Abs Auto 0.02 X10*3/uL (0.00-0.03); Imm Gran Pct Auto 0.3 % (0.0-0.4); Lymphocytes Absolute Auto 1.6 X10*3/uL (1.2-4.9); Mean Corpuscular HGB Conc 34.4 g/dl (31.0-35.0); Mean Corpuscular Hemoglobin 31.3 pg (27.0-33.0); Mean Corpuscular Volume 90.9 fL (80.0-98.0); NRBC Abs Auto 0.000 X10*3/uL (0.0-0.012); NRBC Pct Auto 0.0 /100WBC (0.0-0.2); Platelet Count 301 X10*3/uL (160-400); Red Blood Count 4.41 X10*6/uL (4.20-5.50); White Blood Count 6.7 X10*3/uL (4.8-10.8)
[2025-03-26 15:50] LABS: Alanine Aminotransferase 28 U/L (0-31); Albumin Level 4.6 g/dL (3.5-5.0); Alkaline Phosphatase 53 U/L (39-117); Anion Gap 12 (12-20); Aspartate Amino Transferase 24 U/L (5-31); Blood Urea Nitrogen 16 mg/dL (9-16); Calcium 10.3 mg/dL (8.4-10.2); Carbon Dioxide 29 mmol/L (22-29); Chloride 102 mmol/L (96-108); Cholesterol 182 mg/dL (<200); Estimated Glomerular Filt Rate > 60; HDL Cholesterol 66 mg/dL (>40); Potassium 4.4 mmol/L (3.3-5.1); Sodium 139 mmol/L (135-145); Total Protein 7.2 g/dL (6.5-8.0); Triglycerides 166 mg/dL (<150)
[2025-03-26 16:01] LABS: Hemoglobin A1C 118.2753 umol/L; Total Hemoglobin (HGBA1C) 3567.8368 umol/L
[2025-03-26 17:10] LABS: Vitamin B12 836 pg/mL (200-900)
== END 2025-03-26 11:14 | disposition home or self-care (01) ==
LOC: HO.WFDLDS 11:13
PROVIDERS: Referring Provider Internal Medicine Endocrinology, Diabetes & Metabolism; Visit Provider Internal Medicine
DX: R73.03 Prediabetes (principal); E78.5 Hyperlipidemia, unspecified; E03.9 Hypothyroidism, unspecified; Z13.0 Encounter for screening for diseases of the blood and blood-forming organs and certain disorders involving the immune mechanism; E06.3 Autoimmune thyroiditis
CPT/HCPCS: 36415; 80053; 80061; 82607; 83036; 84443; 85025

== ENCOUNTER 2025-07-13 15:58 | Outpatient (AMB) | payer BC, SELFPAY ==
--- NOTE | 2025-07-13 16:01 | A.OFFPC_ITS ---
Vital Signs 07/13/25 16:04 Height 5 ft 4 in Weight 156 lb BMI 26.8 BP 98/66 Blood Pressure Location Rt brachial Position Sitting Respiration 12 Pulse 72 Pulse Source Pulse Oximeter Temp 97.2 F Temp Source Oral Pulse Oximetry (%) 99 Oxygen Delivery Method Room Air Intake Visit Reasons: cpe Intake Note: CPE Bank Manager Required: No Allergies Sulfa (Sulfonamide Antibiotics) Allergy (Intermediate, Verified 07/13/25 16:02) Hives Tobacco use date assessed: 07/13/25 Dental Screening Dental Screen Date: 07/13/25 Did you have a dental visit in the last 12 months?: Yes Did you have a dental problem in the last 6 months where you did not have access to dental care?: No Was dental information given to patient?: Patient has dentist HPI HPI Comments History of Present Illness Details 60-year-old female with a past medical h istory of prediabetes, hypothyroid, hyperlipidemia, depression, anxiety presenting for CPE Endocrinology: Following with Dr Yennifer Queen for hypothyroidism and prediabetes. On levothyroxine 150mcg daily, metformin 1000mg twice daily. Continues on Zepbound. A1C, TSH followed by that provider. CV: History of bicuspid aortic valve, ?ascending aortic aneurysm. Follows with Dr Solomon. Gets echos every other year. She plans to call to schedule BH: Currently off medications. On amitriptyline on and off for depression and insomnia. MSK: patient reports intense muscle cramping. Like her feet/toes curl up. It has happened in the past with her hands. She gets frequent muscle and joint pain. 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 She tells me she has a history of elevated CK-will check Her last mammogram was 12/2023. 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 BOGG Colonoscopy 02/28/2018-Dr Courtney Delacruz office cardiology Will get flu & COVID ROS CONSTITUTIONAL: Denies weight loss, fever and chills. HEENT: Denies changes in vision and hearing. RESPIRATORY: Denies SOB and cough. CV: Denies palpitations and CP GI: Denies abdominal pain, nausea, vomiting and diarrhea. : Denies dysuria and urinary frequency. MSK: see HPI SKIN: Denies rash and pruritus. NEUROLOGICAL: Denies headache PSYCHIATRIC: Denies recent changes in mood. PHYSICAL EXAM: GENERAL: Alert and oriented x 3. NAD EYES: EOMI. Anicteric. HENT: Moist mucous membranes. No scleral icterus. No cervical lymphadenopathy. LUNGS: Clear to auscultation bilaterally. CARDIOVASCULAR: Regular rate and rhythm. +systolic murmur . No JVD. ABDOMEN: Soft, non-tender +bs EXTREMITIES: No edema. Non-tender. SKIN: No rashes or lesions. Warm. NEUROLOGIC: No focal neurological deficits. CN II-XII grossly intact PSYCHIATRIC: Cooperative. Appropriate mood and affect [facility] Medical History Pre-diabetes Hypothyroidism Surgical History No pertinent past surgical history Family History Father Diabetes No family history of mental disorder Mother No family history of mental disorder Social History Household Members: Spouse and Children Housing: House Are you a primary hospice care sales consultant to a significant other at home: No Do you presently have visiting nurse or other home services: No Alcohol intake: current Patient Tobacco Use Status: Former Tobacco user e-Cigarette/Vaping Use: Never Used Second Hand Smoke Exposure: No service: No Current occupational status: employed Current occupation: House Cleaning Current occupational exposures/hazards: No Cognitive needs: No Hearing needs: No Vision needs: No Questionnaire PHQ-9 Over the last 2 weeks, how often have you been bothered by any of the following problems? 1. Little interest or pleasure in doing things: not at all 2. Feeling down, depressed, or hopeless: not at all 3. Trouble falling or staying asleep, or sleeping too much: several days 4. Feeling tired or having little energy: several days 5. Poor appetite or overeating: not at all 6. Feeling bad about yourself - or that you are a failure or have let yourself or your family down: not at all 7. Trouble concentrating on things, such as reading the newspaper or watching television: not at all 8. Moving or speaking so slowly that other people could have noticed. Or the opposite - being so fidgety or restless that you have been moving around a lot more than usual: not at all 9. Thoughts that you would be better off or of hurting yourself in some way: not at all Total score: 2 Depression Screening Interpretation: Negative Depression Screening Done: Yes 71943 - PHQ-9 Billing: Yes Source: Developed by Drs. Andrea Agosto, Arlyn Bai, Chavez Esquivel and colleagues, with an educational dio from [employer]. Thrive Questionnaire Date Thrive assessed: 07/13/25 I am a: Patient What is your living situation today?: I have a steady place to live Within the past 12 months, did the food you bought not last and you didn't have the money to get more?: Never true Within the past 12 months, did you worry whether your food would run out before you got money to buy more?: Never true Do you have trouble paying for medicines?: No Do you have trouble getting transportation to medical appointments?: No Do you have trouble paying your heating and electricity bill?: No Do you have trouble taking care of your child, family member or friend?: No Do you have trouble with day-to-day activities such as bathing, preparing meals, shopping, managing finances, etc.?: No Are you currently unemployed and looking for a job?: No Are you interested in more education?: No Please select the resources that you would like help with: None Currently or been in a relationship where the following occur: No concerns reported THRIVE Score: 0 AUDIT C Alcohol Use Questionnaire (AUDIT-C) 1. How often do you have a drink containing alcohol?: 2-3 times a week 2. How many drinks containing alcohol do you have on a typical day when you are drinking?: 1 or 2 3. How often do you have six or more drinks on one occasion?: Never Total Score: 3 DIANE-7 AMB Questionnaire DIANE-7 Date DIANE - 7 assessed: 07/13/25 Feeling nervous, anxious, or on edge: 0 = Not at all Not being able to stop or control worryin = Not at all Worrying too much about different things: 0 = Not at all Trouble relaxin = Not at all Being so restless that it is hard to sit still: 0 = Not at all Becoming easily annoyed or irritable: 1 = Several days Feeling afraid as if something awful might happen: 0 = Not at all Total DIANE-7 score (0-4 normal; 5-9 mild; 10-14 moderate; 15-21 severe): 1 Source: Developed by Drs. Andrea Agosto, Arlyn Bai, Chavez Esquivel and colleagues, with an educational dio from [employer]. DIANE-7 Assessment Billing DIANE-7 Assessment Tool: DIANE-7 Assessment 54849 Physical exam (Primary Care) Vital Signs: Last Vital Signs Temp 97.2 F 07/13/25 16:04 Pulse 72 07/13/25 16:04 Resp 12 07/13/25 16:04 BP 98/66 07/13/25 16:04 Pulse Ox 99 07/13/25 16:04 Oxygen Delivery Method Room Air 07/13/25 16:04 BMI result Body Mass Index 26.8 Tobacco/Smoking Status: Tobacco use Status Tobacco use date assessed 07/13/25 07/13/25 16:06 Patient Tobacco Use Status Former Tobacco user 07/13/25 16:02 e-Cigarette/Vaping Use Never Used 07/13/25 16:02 PHQ-9: PHQ-9 Score PHQ-9: Total score 2 07/15/25 10:53 Depression Screening Interpretation: Negative Thrive Assessment: Date of Thrive Assessment Date Thrive assessed 07/13/25 07/13/25 16:02 Currently or been in a relationship where the following occur: No concerns reported Coding Level of Care Code Est Pt Prev Care 40-64y(25074) Diagnoses Physical exam Z00.00 Elevated CK R74.8 Polyarthralgia M25.50 Hypothyroidism, unspecified type E03.9 Hypothyroidism type: unspecified Pre-diabetes R73.03 Additional Codes DIANE-7 Assessment Billing - DIANE-7 Assessment Tool: DIANE-7 Assessment 89467 ([id number]) PHQ-9 - 24852 - PHQ-9 Billing: Yes ([id number]) Assessment & Plan Assessment & Plan (1) Physical exam: Code(s): Z00.00 - Encounter for general adult medical examination without abnormal findings (2) Elevated CK: Code(s): R74.8 - Abnormal levels of other serum enzymes Category: Medical (3) Polyarthralgia: Code(s): M25.50 - Pain in unspecified joint Category: Medical (4) Hypothyroidism: Code(s): E03.9 - Hypothyroidism, unspecified Category: Medical Qualifiers: Hypothyroidism type: unspecified Qualified Code(s): E03.9 - Hypoth yroidism, unspecified (5) Pre-diabetes: Code(s): R73.03 - Prediabetes Category: Medical Plan 60 year old for CPE Interval history reviewed Preventive measures for age discussed Muscle cramping, pain-check CK DM, hypothyroid-followed by endocrine Advised to call for mammo Orders: Orders Creatine Kinase Total 07/14/25 E03.9 - Hypothyroidism, unspecified, E78.5 - Hyperlipidemia, unspecified, M25.50 - Pain in unspecified joint, R73.03 - Prediabetes, Z86.19 - Personal history of other infectious and parasitic diseases Magnesium 07/14/25 E03.9 - Hypothyroidism, unspecified, E78.5 - Hyperlipidemia, unspecified, M25.50 - Pain in unspecified joint, R73.03 - Prediabetes, Z86.19 - Personal history of other infectious and parasitic diseases Erythrocyte Sedimentation Rate 07/14/25 E03.9 - Hypothyroidism, unspecified, E78.5 - Hyperlipidemia, unspecified, M25.50 - Pain in unspecified joint, R73.03 - Prediabetes, Z86.19 - Personal history of other infectious and parasitic diseases IRON PROFILE 07/14/25 E03.9 - Hypothyroidism, unspecified, E78.5 - Hyperlipidemia, unspecified, M25.50 - Pain in unspecified joint, R73.03 - Prediabetes, Z86.19 - Personal history of other infectious and parasitic diseases MADHU Reflex Titer and Pattern 07/14/25 E03.9 - Hypothyroidism, unspecified, E78.5 - Hyperlipidemia, unspecified, M25.50 - Pain in unspecified joint, R73.03 - Prediabetes, Z86.19 - Personal history of other infectious and parasitic diseases Referrals Neurology Referral M25.50 - Pain in unspecified joint, M62.40 - Contracture of muscle, unspecified site, R74.8 - Abnormal levels of other serum enzymes
[2025-07-13 16:04] VITALS: BP 98/66; PULSE 72; RESP 12; TEMP 36.2; O2SAT 99; BMI 26.8
--- OUTSIDE RECORDS SUMMARY | 2025-07-13 20:05 | XMS_ITS | Patient Health Record ---
Author Organization [facility] Address [address] [address] Care Team Providers Care Smart Energy Specialist Name Role Phone MIKE CABRERA Primary Care Provider LAKHWINDER Shen Unavailable [phone] Allergies Allergen (clinical drug ingredient) Drug/Non Drug [...] Status W/U Status Risk Notes Problem Hypothyroidism (77058590) Hypothyroidism, unspecified (E03.9) Active confirmed Problem Allergic arthritis (46964779) Other specified arthritis, unspecified site (M13.80) Active confirmed Problem Polymyalgia rheumatica (88677742) Polymyalgia rheumatica (M35.3) Active confirmed Plan Of Treatment Pending Test Test Name Order Date Urinalysis 05/09/2021 Insurance Providers Payer Name Payer Address Payer Phone Subscriber Number Group Number Insured Name Patient Relationship to Insured Coverage Start Date Coverage End Date [employer] [place] [address] [place] [address] [phone] [id number] ALEX MULLER Self - patient is the insured Medical (General) History Medical History History ICD Code Hypothyroidism, unspecified E03.9 Other specified arthritis, unspecified s ite M13.80 Polymyalgia rheumatica M35.3 Surgical History Surgery Date(Month/Year) C- Sections 07/06/98-02/22/00 Sinus Surgery Rotator Cuff 09/19/2016 Hospitalization History Reason Date(Month/Year) See Surgical HX
--- OUTSIDE RECORDS SUMMARY | 2025-07-13 20:05 | XMS_ITS | Encounter Summary ---
Author Organization [facility] Address [address] [place] [address] Phone Care Team Providers Care Well Tester Name Role Phone Elizabeth Etienne MD Primary Care Provid er Mallory Goodson MD Primary Care Provid er Encounter Details Date Type Department Care Team (Late st Contact Info) Description 04/26/2021 Procedure Pass [facility], Ct Scan - [facility] [address] [place] [address] Social History Tobacco Use Types Packs/Day Years Used Date Smoking Tobacco: Former Smokeless Tobacco: Never Alcohol Use Standard Drinks/Week Comments Yes 0 (1 standard drink = 0.6 oz pur e alcohol) weekends Comments Unknown Sex and Gender Information Value Date Recorded Sex Assigned at Not on file Legal Sex Female 5:59 PM EST Gender Identity Not on file Sexual Orientation Not on file documented as of this encounter Functional Status * Calculated C-SSRS Risk Score (Lifetime/Recent) Answer Date of Assessment Author No Risk Indicated 04/26/2021 5:48 PM EDT Darryn Jean RN * [place] Suicide Severity Rating Scale (Screener/Recent Self-Report) Question Answer Date of Assessment Author 1. Wish to be (Past 1 Month) No 021 5:48 PM EDT Aga Jean, RN 2. Non-Specific Active Suici ilene Thoughts (Past 1 Month) No 04/26/2021 5:48 PM EDT Aga Jean , RN 6. Suicidal Behavior (Lifetime) No 08/11/202 1 5:48 PM EDT Ted, Aga RN documented as of this encounter Plan of Treatment Not on file documented as of this encounter Visit Diagnoses Not on filedocumented in this encounter Care Teams Well Tester Relationship Specialty Start Date End Date Elizabeth Etienne MD [address] [address] PCP - General 03/16/14 03/21/24 Mallory Goodson MD [address] [place] [address] PCP - General Internal Medicine 03/22/24 documented as of this encounter Additional Source Comments The information contained in this document represents components of the legal health record. It is not the complete legal health record.[facility]
--- OUTSIDE RECORDS SUMMARY | 2025-07-13 20:05 | XMS_ITS | Clinical Summary ---
Author Organization [facility] Address [address] [place] [address] Care Team Providers Care Iron Pellet Tester Name Role Phone Janelle Lowery Primary Care Provider [phone] Allergies Active Allergy Reactions Criticality Noted Date [...] (2 - Td or Tdap) 11/29/2019 11/28/2009 Alcohol/Substance Use Screening 09/16/2024 Depression Screening and Follow-Up 09/16/2024 Social Drivers of Health Susan ual Screening 09/16/2024 COVID-19 Vaccine (5 - 2024-2 6 season) 2025 06/05/2022, 07/19/2021, 01/02/2021, Additional history exists Influenza Vaccine (#1) 2025 , 06/10/2018, 08/24/2016, Additional history exists RSV Vaccine (60+ years old a nd patients) (1 - 1-dose 75+ series) 2041 Insurance [facility] PPO/EPO Care Teams Iron Pellet Tester Relationship Specialty Start Date End Date Beverley Janelle [address] [place] [address] PCP - General 04/23/23
--- OUTSIDE RECORDS SUMMARY | 2025-07-13 20:05 | XMS_ITS ---
Continuity of Care Document (CCD) Created on: July 13, 2025 Ann Marie Gordillo External Reference #: [id number] : [id number] Sex: Female Author Organization [facility] Address [address] [place], [place] Phone [phone] Care Team Providers Care Social Science Analyst Name Role Phone Tess Horne MD Care Team Information Hair Cutter Unavailable YENNIFER QUEEN M.D. Care Team Information Rec eiver Unavailable Tess Horne MD Primary Care Physician Unavaila ble Problems Active Problems Provider Date Essential hypertension Yennifer Queen M.D. O nset: 09/02/2023 Metabolic syndrome X Yennifer Queen M.D. Ons et: 10/04/2021 Obesity Yennifer Queen M.D. Onset: 0 05/24/2021 Jenna thyroiditis Yennifer Queen M.D. On set: 05/24/2021 Social History Type Date Description Comments Sex Female Sex Unknown Allergies and adverse reactions Active Allergies Criticality Reaction Severity Comments Date Sulfa Unable to assess criticality 05/24/2021 Medications Active Medications SIG Qnty Indications Order ing Provider Date Mekeqpxt87.5mg/0.5ML Solution Auto-Inject inject 12.5mg subcutaneously once a week 6ml E06.3 Yennifer Queen M.D. 03/29/2025 Levothyroxine Ltwgbz842obz Tablets Take 1 Tablet By Mouth On 2 Days Of The Week Alternate With The 150 mcg 45tabs Yennifer Queen M.D. 04/15/2023 BD Pen Needle/Mini/Ultra-Fi ne/31G X 5mm31G X 5 mm Misc 1 needle tip one time a day 100units E88.81 Yennifer Queen M.D. 10/30/2022 Levothyroxine Knupgj174psz Tablets Take 1 Tablet by mouth on 5days a week(alternates with 137's) 60tabs Yennifer Queen M.D. 12/05/2021 Metformin HCL DZ454bj Tablets ER 24HR Take 2 Tablets Twice A Day 360tabs E66.9 Yennifer Queen M.D. 05/24/2021 Multivitamin AdultTablets 1 by mouth every day Unknown 000 Vit C 500 bid->less in summer Unknown Fqpqikr668/D 1 bid Unknown 000 Tumeric Unknown Glucosamine Unknown 00 Vitamin B-ComplexTablets 1 by mouth every day Unknown Amitriptyline QHI92uh Tablets Take 1 Tablet By Mouth AT Bedtime, prn Glenys Moran, DNP Clobetasol Propionate0.05% Cream Apply A Pea Sized Amount To The Affected Area Topically Once Daily Unknown History Medications Ggsmghrz22yr/0.5ML Solution Auto-Inject inject 10mg subcutaeously weekly 6ml E06.3 Yennifer Queen M.D. 09/18/2024 - 03/29/2025 Hzztiiux7qu/0.5ML Solution Auto-Inject administer 5 mg under the skin 1 time a week 6ml E06.3 Yennifer Queen M.D. 07/24/2024 - 09/18/2024 Laylbqjg77nu/0.5ML Solution Auto-Inject inject 10mg subcutaeously weekly 6ml E06.3 Yennifer Queen M.D. 07/20/2024 - 07/24/2024 Zepbound7.5mg/0.5ML Solution Auto-Inject administer 7.5 mg under the skin 1 time a week 6ml E06.3 Yennifer Queen M.D. 05/27/2024 - 07/20/2024 Qkmjlknv6xr/0.5ML Solution Auto-Inject administer 5 mg under the skin 1 time a week 6ml E06.3 Yennifer Queen M.D. 03/30/2024 - 05/27/2024 Zepbound2.5mg/0.5ML Solution Auto-Inject inject 2.5mg subcutaneously once a week 2ml E06.3 Yennifer Queen M.D. 03/04/2024 - 03/30/2024 Zepbound7.5mg/0.5ML Solution Auto-Inject administer 7.5 mg under the skin 1 time a week 6ml E06.3 Yennifer Queen M.D. 01/09/2024 - 03/04/2024 Pirdkacn7as/0.5ML Solution Auto-Inject administer 5 mg under the skin 1 time a week 4ml E06.3 Yennifer Queen M.D. 12/09/2023 - 01/09/2024 Zepbound7.5mg/0.5ML Solution Auto-Inject Administer 7.5 MG Under The Skin 1 Time A Week 6ml E06.3 Yennifer Queen M.D. 12/03/2023 - 12/09/2023 Vwmlgagn9zw/0.5ML Solution Auto-Inject Administer 5 MG Under The Skin 1 Time A Week 2units E06.3 Yennifer Queen M.D. 10/02/2023 - 12/03/2023 Zepbound2.5mg/0.5ML Solution Auto-Inject inject 2.5mg subcutaneously once a week 2ml E06.3 Yennifer Queen M.D. 09/02/2023 - 10/02/2023 Wegovy0.25mg/0.5ML Solution Auto-Inject inject 0.25mg subcutaneously once a week 2ml Yennifer Queen M.D. 05/08/2023 - 09/02/2023 Srbywuwf1nk/0.5ML Solution Pen-Inject inject 5mg subcutaneously once a week 6ml Yennifer Queen M.D. 12/17/2022 - 05/15/2023 Wellbutrin NK958ni Tablets ER 12HR 1 tab by mouth every day 30tabs Yennifer Queen M.D. 11/05/2022 - 03/26/2025 Mounjaro2.5mg/0.5ML Solution Pen-Inject 2.5mg subcutaneously q1week 2ml E88.81 Yennifer Queen M.D. 10/30/2022 - 11/05/2022 Ofgaznwbme112gc Capsules 1@am & 2@pm Unk nown - 11/16/2021 Aspirin Adult Low Ulok46ul Tablets DR 1 by mouth every day Unknown - 09/18/2024 Amitriptyline MRC13ry Tablets 1 tab by mouth every night Unknown - 09/18/2024 Levothyroxine Fcdzfo525vom Tablets 1 by mouth every day Unknown - 12/05/2021 Hijhvozsbv731sm Tablets Boogie Baca MD - 10/04/2021 Fououiinrh147lx Capsules Boogie Hemphill MD - 10/04/2021
--- OUTSIDE RECORDS SUMMARY | 2025-07-13 20:05 | XMS_ITS | Encounter Summary ---
Author Organization [facility] Address [address] [place] [address] Phone Care Team Providers Care [place] Guide Name Role Phone Elizabeth Etienne MD Primary Care Provid er Mallory Goodson MD Primary Care Provid er Encounter Details Date Type Department Care Team (Late st Contact Info) Description 08/03/2020 Ancillary Orders [facility] [address] [place] [address] Elizabeth Etienne MD [address] [address] Screening mammogram, encounter for Social History Tobacco Use Types Packs/Day Years Used Date Smoking Tobacco: Never Assessed Comments Unknown Sex and Gender Information Value Date Recorded Sex Assigned at Not on file Legal Sex Female 5:59 PM EST Gender Identity Not on file Sexual Orientation Not on file documented as of this encounter Plan of Treatment Not on file documented as of this encounter Visit Diagnoses Diagnosis Screening mammogram, encounter for documented in this encounter Care Teams [place] Guide Relationship Specialty Start Date End Date Elizabeth Etienne MD [address] [address] PCP - General 03/16/14 03/21/24 Mallory Goodson MD [address] [place] [address] PCP - General Internal Medicine 03/22/24 documented as of this encounter Additional Source Comments The information contained in this document represents components of the legal health record. It is not the complete legal health record.[facility]
--- OUTSIDE RECORDS SUMMARY | 2025-07-13 20:05 | XMS_ITS | Clinical Summary ---
Author Organization [facility] Address [address] [address] Phone Care Team Providers Care Skin Lap Bonder Name Role Phone Mallory Goodson MD Primary Care Provid er Allergies Active Allergy Reactions Criticality Noted Date Comments Morphine Rash Low 05/28/2023 Sulfa (Sulfonamide Antibiotics) Rash 11/2011 Medications SYNTHROID 150 mcg tablet 01/26/2022 Active amitriptyline (ELAVIL) 10 MG tablet 01/10/2022 Active metFORMIN (GLUCOPHAGE-XR) 500 MG 24 hr tablet 02/11/2022 Active Active Problems Problem Noted Date Diagnosed Date Generalized abdominal pain 03/16/2022 Immunizations Immunization Administration Dates Next Due Influenza, Unspecified Formulation 09/19(Deferred: Other),09/19/2011(Deferred: Other) Social History Tobacco Use Types Packs/Day Years Used Date Smoking Tobacco: Former Smokeless Tobacco: Never Alcohol Use Standard Drinks/Week Comments Yes 0 (1 standard drink = 0.6 oz pur e alcohol) weekends Education Answer Date Recorded Are you interested in more education? Not on pieter e 01/27/2023 Are you concerned about learning? Not on file 01/27/2023 No 01/27/2023 No 01/27/2023 Digital Access Answer Date Recorded No 02/09/2023 No 02/09/2023 Reliable internet access at home? Not on file 02/09/2023 Device with a working camera? Not on file Comments Unknown Sex and Gender Information Value Date Recorded Sex Assigned at Not on file Legal Sex Female 5:59 PM EST Gender Identity Not on file Sexual Orientation Not on file Last Filed Vital Signs Vital Sign Reading Time Taken Comments Blood Pressure 135/85 03/22/2024 10:21 AM EDT Pulse 62 03/22/2024 10:21 AM EDT Temperature 36.8 C (98.3 F) 03/22/2024 10:21 AM EDT Respiratory Rate 16 03/22/2024 10:21 AM EDT Oxygen Saturation 99% 03/22/2024 10:21 AM EDT Inhaled Oxygen Concentration - - Weight 88.9 kg (196 lb) 03/16/2022 10:19 AM EDT Height 162.6 cm (5' 4 ) 03/16/2022 10:19 AM EDT Body Mass Index 33.64 03/16/2022 10:19 AM EDT Plan of Treatment Health Maintenance Due Date Last Done Comments TSH LEVEL 1966 DEPRESSION SCREENING 1978 SMOKING Hx and SMOKELESS TOBACCO SCREENING 1979 HEPATITIS C SCREENING 1984 HIV ONE-TIME SCREENING (18-65 YEARS) 1984 PAP SMEAR 1987 MAMMOGRAM 2006 COLOGUARD 2011 COLONOSCOPY 2011 COLORECTAL CANCER SCREENING 2011 FIT TEST 2011 FOBT 2011 SIGMOIDOSCOPY 2011 VIRTUAL COLONOSCOPY 2011 PNEUMOCOCCAL VACCINES (50+ years) (1 of 1 - PCV) 2016 ZOSTER VACCINES (1 of 2) 2016 LIPID PANEL 09/19/2016 09/19/2011 Adult Td,Tdap Booster 11/29/2019 11/28/2009 CREATININE LEVEL 04/26/2022 04/26/2021, 09/19/2011 INFLUENZA VACCINE (#1) 2025 , 07/19/2021, 06/10/2018, Additional history exists COVID-19 VACCINE ( - 2024- season) 2025 07/15/2023, 06/05/2022, 07/19/2021, Additional history exists RSV VACCINE (1 - 1-dose 75+ series) 2041 HEPATITIS A VACCINES Aged Out No long er eligible based on patient's age to complete this topic HIB VACCINES Aged Out No longer eligi ble based on patient's age to complete this topic MENINGOCOCCAL VACCINES (ACWY) Aged Out No longer eligible based on patient's age to complete this topic MENINGOCOCCAL VACCINES (B) Aged Out N o longer eligible based on patient's age to complete this topic Medical Devices Not on file Procedures Procedure Name Priority Date/Time Associated Diagnosis Comments BASIC METABOLIC PANEL STAT 04/26/2021 6:15 PM EDT HISTORICAL LAB Routine 09/19/2011 4:30 AM EST from Last 3 Months or Most Recently Relevant to Health Maintenance Results * (ABNORMAL) Basic metabolic panel (04/26/2021 6:15 PM EDT) SODIUM 140 133 - 146 mmol/L [facility] CHLORIDE 101 96 - 108 mmol/L [facility] POTASSIUM 4.2 3.3 - 5.1 mmol/L [facility] CO2 28 21 - 35 mmol/L [facility] BUN 21(H) 6 - 19 mg/dL [facility] CREATININE 0.80 0.5 - 1.5 mg/dL [facility] GLUCOSE 104(H) 70 - 99 mg/dL [facility] CALCIUM 11.1(H) 8.4 - 10.3 mg/dL [facility] EGFR 84 >59 mL/min/1.7 3m2 [facility] Comment:Estimated glomerular filtration rate calculated using the CKD-EPI equation. ANION GAP 15 10 - 20 mmol/L [facility] Blood 04/26/2021 6:15 PM EDT 04/26/2021 6:25 PM EDT us Andrea Lafleur MD LAB BLOOD ORDERABLES Fin al Result [address] [address] * (ABNORMAL) Historical Lab (09/19/2011 4:30 AM EST) Creatine Kinase 133 40 - 150 U/L [facility] Albumin 4.0 3.3 - 5.0 g/dl [facility] Total Bilirubin 0.3 0.0 - 1.0 mg/dl [facility] Direct Bilirubin 0.1 0 - 0.4 mg/dl [facility] Alkaline Phosphatase 52 30 - 100 U/L [facility] Transaminase-SGOT 19 9 - 32 U/L [facility] Transaminase-SGPT 22 7 - 30 U/L [facility] Total Protein 6.4 6.0 - 8.3 g/dl [facility] Globulin 2.4 2.3 - 4.1 g/dl [facility] Creatine Kinase Isoenzymes 6.5 0.0 - 6.9 ng/ml [facility] CPK Isoenzymes Index 4.9(Abnor myrna H) 0.0 - 3.5 % [facility] High Density Lipoprotein 47 35 - 100 mg/dl [facility] Cholesterol 164 mg/dl [facility] Comment:DESIRABLE: <200 Triglycerides 134 40 - 150 mg/dl [facility] Low Density Lipoprotein 90 mg/dl [facility] Comment:DESIRABLE: <130 Cardiac Risk Ratio 3.5 [facility] Comment:NORMAL RISK RATIO: 5 .0 OR LESS Magnesium 1.9 1.4 - 2.0 meq/L [facility] Plasma Urea Nitrogen 13 8 - 25 mg/dl [facility] Plasma Creatinine 0.64 0.60 - 1.50 mg/dl [facility] eGFR >60 mL/min/1. 73m2 [facility] Comment: Abnormal if <60 mL/min/1.73m2. If patient is -Stateless, multiply the result by 1.21. Plasma Sodium 137 135 - 145 mmol/L [facility] Plasma Potassium 4.2 3.4 - 4.8 mmol/L [facility] Plasma Chloride 105 100 - 108 mmol/L [facility] Plasma Carbon Dioxide 25.8 23.0 - 31.9 mmol/L [facility] Plasma Anion GAP 6 3 - 15 mmol/L [facility] 09/19/2011 4:30 AM EST 09/19/2011 4:50 AM EST Comment:BLOOD us Susan Chaudhary NP LAB BLOOD ORDERABLES Final Res ult [address] [address] from Last 3 Months or Most Recently Relevant to Health Maintenance Insurance [facility] PPO EPO [facility] [place] [address] [place] [address] PPO EPO [facility] PPO EPO [facility] PPO EPO [facility] PPO EPO [facility] PPO EPO [facility] PPO EPO [facility] PPO EPO Care Teams Skin Lap Bonder Relationship Specialty Start Date End Date Mallory Goodson MD [address] [place] [address] PCP - General Internal Medicine 03/22/24 Additional Source Comments The information contained in this document represents components of the legal health record. It is not the complete legal health record.[facility]
== END 2025-07-13 16:44 | disposition home or self-care (01) ==
LOC: HO.HMCFM 15:59
PROVIDERS: PCP Nurse Practitioner Family; Visit Provider Internal Medicine
DX: Z00.00 Encounter for general adult medical examination without abnormal findings (principal); R74.8 Abnormal levels of other serum enzymes; M25.50 Pain in unspecified joint; E03.9 Hypothyroidism, unspecified; R73.03 Prediabetes

== ENCOUNTER → 2025-07-13 15:58 | Outpatient (BNVA) | payer BC, SELFPAY | PROVIDERS: PCP Nurse Practitioner Family; Visit Provider Internal Medicine | DX: Z00.00 Encounter for general adult medical examination without abnormal findings (principal); R74.8 Abnormal levels of other serum enzymes; M25.50 Pain in unspecified joint; E03.9 Hypothyroidism, unspecified; R73.03 Prediabetes | CPT/HCPCS: 96127 ==

== ENCOUNTER 2025-07-14 10:40 | Outpatient (REF) | payer BC, SELFPAY ==
--- OUTSIDE RECORDS SUMMARY | 2025-07-14 13:15 | XMS_ITS | Patient Health Record ---
Author Organization [facility] Address [address] [address] Care Team Providers Care Mash Processing Operator Name Role Phone MIKE CABRERA Primary Care Provider LAKHWINDER Shen Unavailable [phone] Allergies Allergen (clinical drug ingredient) Drug/Non Drug [...] Status W/U Status Risk Notes Problem Hypothyroidism (39334082) Hypothyroidism, unspecified (E03.9) Active confirmed Problem Allergic arthritis (38609760) Other specified arthritis, unspecified site (M13.80) Active confirmed Problem Polymyalgia rheumatica (49645809) Polymyalgia rheumatica (M35.3) Active confirmed Plan Of Treatment Pending Test Test Name Order Date Urinalysis 05/09/2021 Insurance Providers Payer Name Payer Address Payer Phone Subscriber Number Group Number Insured Name Patient Relationship to Insured Coverage Start Date Coverage End Date [employer] [address] [place] [address] [id number] ALEX MULLER Self - patient is the insured Medical (General) History Medical History History ICD Code Hypothyroidism, unspecified E03.9 Other specified arthritis, unspecified s ite M13.80 Polymyalgia rheumatica M35.3 Surgical History Surgery Date(Month/Year) C- Sections 07/06/98-02/22/00 Sinus Surgery Rotator Cuff 09/19/2016 Hospitalization History Reason Date(Month/Year) See Surgical HX
--- OUTSIDE RECORDS SUMMARY | 2025-07-14 13:15 | XMS_ITS | Encounter Summary ---
Author Organization [facility] Address [address] [facility] [address] [place] [address] Phone Care Team Providers Care Etl Consultant Name Role Phone Elizabeth Etienne MD Primary Care Provid er Mallory Goodson MD Primary Care Provid er Encounter Details Date Type Department Care Team (Late st Contact Info) Description 08/03/2020 Ancillary Orders [facility] [address] [facility] [address] [place] [address] Elizabeth Etienne MD [address] [address] Screening mammogram, encounter for Social History Tobacco [...] for documented in this encounter Care Teams Etl Consultant Relationship Specialty Start Date End Date Elizabeth Etienne MD [address] [address] PCP - General 03/16/14 03/21/24 Mallory Goodson MD [address] [place] [address] PCP - General Internal Medicine 03/22/24 documented as of this encounter Additional Source Comments The information contained in this document represents components of the legal health record. It is not the complete legal health record.[facility]
--- OUTSIDE RECORDS SUMMARY | 2025-07-14 13:16 | XMS_ITS | Encounter Summary ---
Author Organization [facility] Address [address] [place] [address] Phone Care Team Providers Care Advisory Services Associate Name Role Phone Elizabeth Etienne MD Primary Care Provid er Mallory Goodson MD Primary Care Provid er Encounter Details Date Type Department Care Team (Late st Contact Info) Description 04/26/2021 Procedure Pass [facility] Scan - [facility] [address] [place] [address] Social History Tobacco Use Types Packs/Day Years [...] 5:48 PM EDT Darryn Jean RN * [place] Suicide Severity Rating Scale (Screener/Recent Self-Report) Question [...] on filedocumented in this encounter Care Teams Advisory Services Associate Relationship Specialty Start Date End Date Elizabeth Etienne MD [address] [address] PCP - General 03/16/14 03/21/24 Mallory Goodson MD [address] [place] [address] PCP - General Internal Medicine 03/22/24 documented as of this encounter Additional Source Comments The information contained in this document represents components of the legal health record. It is not the complete legal health record.[facility]
--- OUTSIDE RECORDS SUMMARY | 2025-07-14 13:16 | XMS_ITS | Clinical Summary ---
Author Organization [facility] Address [address] [place] [address] Care Team Providers Care Preparation Plant Supervisor Name Role Phone Janelle Lowery Primary Care Provider [phone] Allergies Active Allergy Reactions Criticality Noted Date [...] (1 - 1-dose 75+ series) 2041 Insurance [facility] PPO/EPO Care Teams Preparation Plant Supervisor Relationship Specialty Start Date End Date Beverley Janelle [address] [place] [address] PCP - General 04/23/23
--- OUTSIDE RECORDS SUMMARY | 2025-07-14 13:16 | XMS_ITS | Clinical Summary ---
Author Organization [facility] Address [address] [address] Phone Care Team Providers Care Talend Developer Name Role Phone Mallory Goodson MD Primary [...] EDT) SODIUM 140 133 - 146 mmol/L [facility] CHLORIDE 101 96 - 108 mmol/L [facility] POTASSIUM 4.2 3.3 - 5.1 mmol/L [facility] CO2 28 21 - 35 mmol/L [facility] BUN 21(H) 6 - 19 mg/dL [facility] CREATININE 0.80 0.5 - 1.5 mg/dL [facility] GLUCOSE 104(H) 70 - 99 mg/dL [facility] CALCIUM 11.1(H) 8.4 - 10.3 mg/dL [facility] EGFR 84 >59 mL/min/1.7 3m2 [facility] Comment:Estimated glomerular filtration rate calculated using the CKD-EPI equation. ANION GAP 15 10 - 20 mmol/L [facility] Blood 04/26/2021 6:15 PM EDT 04/26/2021 6:25 PM EDT us Andrea Lafleur MD LAB BLOOD ORDERABLES Fin al Result [address] [address] * (ABNORMAL) Historical Lab (09/19/2011 4:30 AM EST) Creatine Kinase 133 40 - 150 U/L [facility] Albumin 4.0 3.3 - 5.0 g/dl [facility] Total Bilirubin 0.3 0.0 - 1.0 mg/dl [facility] Direct Bilirubin 0.1 0 - 0.4 mg/dl [facility] Alkaline Phosphatase 52 30 - 100 U/L [facility] Transaminase-SGOT 19 9 - 32 U/L [facility] Transaminase-SGPT 22 7 - 30 U/L [facility] Total Protein 6.4 6.0 - 8.3 g/dl [facility] Globulin 2.4 2.3 - 4.1 g/dl [facility] Creatine Kinase Isoenzymes 6.5 0.0 - 6.9 ng/ml [facility] CPK Isoenzymes Index 4.9(Abnor myrna H) 0.0 - 3.5 % [facility] High Density Lipoprotein 47 35 - 100 mg/dl [facility] Cholesterol 164 mg/dl [facility] Comment:DESIRABLE: <200 Triglycerides 134 40 - 150 mg/dl [facility] Low Density Lipoprotein 90 mg/dl [facility] Comment:DESIRABLE: <130 Cardiac Risk Ratio 3.5 [facility] Comment:NORMAL RISK RATIO: 5 .0 OR LESS Magnesium 1.9 1.4 - 2.0 meq/L [facility] Plasma Urea Nitrogen 13 8 - 25 mg/dl [facility] Plasma Creatinine 0.64 0.60 - 1.50 mg/dl [facility] eGFR >60 mL/min/1. 73m2 [facility] Comment: Abnormal if <60 mL/min/1.73m2. If patient is -[place], multiply the result by 1.21. Plasma Sodium 137 135 - 145 mmol/L [facility] Plasma Potassium 4.2 3.4 - 4.8 mmol/L [facility] Plasma Chloride 105 100 - 108 mmol/L [facility] Plasma Carbon Dioxide 25.8 23.0 - 31.9 mmol/L [facility] Plasma Anion GAP 6 3 - 15 mmol/L [facility] 09/19/2011 4:30 AM EST 09/19/2011 4:50 AM EST Comment:BLOOD us Susan Chaudhary NP LAB BLOOD ORDERABLES Final Res ult [address] [address] from Last 3 Months or Most Recently Relevant to Health Maintenance Insurance [facility] PPO EPO [facility] [place] [address] [place] [address] PPO EPO [facility] PPO EPO [facility] PPO EPO [facility] PPO EPO [facility] PPO EPO [facility] PPO EPO [facility] PPO EPO Care Teams Talend Developer Relationship Specialty Start Date End Date Mallory Goodson MD [address] [place] [address] PCP - General Internal Medicine 03/22/24 Additional Source Comments The information contained in this document represents components of the legal health record. It is not the complete legal health record.[facility]
--- OUTSIDE RECORDS SUMMARY | 2025-07-14 13:16 | XMS_ITS | Continuity of Care Document ---
Author Organization [facility] Address [address] [facility] [address] [place], [place] Phone [phone] Care Team Providers Care Glass Or Mirror Inspector Name Role Phone Tess oHrne MD Care Team Information Agricultural Engineering Teacher Unavailable YENNIFER QUEEN M.D. Care Team Information [...] SIG Qnty Indications Order ing Provider Date Hlihmpoq18.5mg/0.5ML Solution Auto-Inject inject 12.5mg subcutaneously once a week 6ml E06.3 Yennifer Queen M.D. 03/29/2025 Levothyroxine Lkbqum686khn Tablets Take 1 Tablet By Mouth On 2 Days Of The Week Alternate With The 150 mcg 45tabs Yennifer Queen M.D. 04/15/2023 BD Pen Needle/Mini/Ultra-Fi ne/31G X 5mm31G X 5 mm Misc 1 needle tip one time a day 100units E88.81 Yennifer Queen M.D. 10/30/2022 Levothyroxine Nvvmwa940tik Tablets Take 1 Tablet by mouth on 5days a week(alternates with 137's) 60tabs Yennifer Queen M.D. 12/05/2021 Metformin HCL PO343xt Tablets ER 24HR Take 2 Tablets Twice A Day 360tabs E66.9 Yennifer Queen M.D. 05/24/2021 Multivitamin AdultTablets 1 by mouth every day Unknown 000 Vit C 500 bid->less in summer Unknown Awmudws367/D 1 bid Unknown 000 Tumeric Unknown Glucosamine Unknown 00 Vitamin B-ComplexTablets 1 by mouth every day Unknown Amitriptyline MZS70ub Tablets Take 1 Tablet By Mouth AT Bedtime, prn Glenys Moran, DNP Clobetasol Propionate0.05% Cream Apply A Pea Sized Amount To The Affected Area Topically Once Daily Unknown History Medications Tuefchbr72oc/0.5ML Solution Auto-Inject inject 10mg subcutaeously weekly 6ml E06.3 Yennifer Queen M.D. 09/18/2024 - 03/29/2025 Pbcgmzys2hh/0.5ML Solution Auto-Inject administer 5 mg under the skin 1 time a week 6ml E06.3 Yennifer Queen M.D. 07/24/2024 - 09/18/2024 Sdkslgmr54ze/0.5ML Solution Auto-Inject inject 10mg subcutaeously weekly 6ml E06.3 Yennifer Queen M.D. 07/20/2024 - 07/24/2024 Zepbound7.5mg/0.5ML Solution Auto-Inject administer 7.5 mg under the skin 1 time a week 6ml E06.3 Yennifer Queen M.D. 05/27/2024 - 07/20/2024 Cbgzvlyf4cw/0.5ML Solution Auto-Inject administer 5 mg under the skin 1 time a week 6ml E06.3 Yennifer Queen M.D. 03/30/2024 - 05/27/2024 Zepbound2.5mg/0.5ML Solution Auto-Inject inject 2.5mg subcutaneously once a week 2ml E06.3 Yennifer Queen M.D. 03/04/2024 - 03/30/2024 Zepbound7.5mg/0.5ML Solution Auto-Inject administer 7.5 mg under the skin 1 time a week 6ml E06.3 Yennifer Queen M.D. 01/09/2024 - 03/04/2024 Xaeddmtq0jj/0.5ML Solution Auto-Inject administer 5 mg under the skin 1 time a week 4ml E06.3 Yennifer Queen M.D. 12/09/2023 - 01/09/2024 Zepbound7.5mg/0.5ML Solution Auto-Inject Administer 7.5 MG Under The Skin 1 Time A Week 6ml E06.3 Yennifer Queen M.D. 12/03/2023 - 12/09/2023 Wpcrgxmv2fc/0.5ML Solution Auto-Inject Administer 5 MG Under The Skin 1 Time A Week 2units E06.3 Yennifer Queen M.D. 10/02/2023 - 12/03/2023 Zepbound2.5mg/0.5ML Solution Auto-Inject inject 2.5mg subcutaneously once a week 2ml E06.3 Yennifer Queen M.D. 09/02/2023 - 10/02/2023 Wegovy0.25mg/0.5ML Solution Auto-Inject inject 0.25mg subcutaneously once a week 2ml Yennifer Queen M.D. 05/08/2023 - 09/02/2023 Ovcusdli6yu/0.5ML Solution Pen-Inject inject 5mg subcutaneously once a week 6ml Yennifer Queen M.D. 12/17/2022 - 05/15/2023 Wellbutrin EJ374ku Tablets ER 12HR 1 tab by mouth every day 30tabs Yennifer Queen M.D. 11/05/2022 - 03/26/2025 Mounjaro2.5mg/0.5ML Solution Pen-Inject 2.5mg subcutaneously q1week 2ml E88.81 Yennifer Queen M.D. 10/30/2022 - 11/05/2022 Hhqosixjhn363cd Capsules 1@am & 2@pm Unk nown - 11/16/2021 Aspirin Adult Low Jngp04en Tablets DR 1 by mouth every day Unknown - 09/18/2024 Amitriptyline GPN58id Tablets 1 tab by mouth every night Unknown - 09/18/2024 Levothyroxine Kyqwgq970qso Tablets 1 by mouth every day Unknown - 12/05/2021 Wqasbylyau986nx Tablets Boogie Baca MD - 10/04/2021 Pmjkpnvjpl705te Capsules Boogie Hemphill MD - 10/04/2021
[2025-07-14 14:24] LABS: Iron 99 mcg/dL (30-160); Magnesium 2.2 mg/dL (1.6-2.6); Percent Iron Saturation 34 % (15-50); Total Iron Binding Capacity 288 mcg/dL (228-428); Unsaturated Iron Binding 189 ug/dL
[2025-07-20 12:10] LABS: Anti Nuclear Antibody Screen NEGATIVE (NEGATIVE)
== END 2025-07-14 10:41 | disposition home or self-care (01) ==
LOC: HO.WFDLDS 10:40
PROVIDERS: Visit Provider Internal Medicine
DX: Z01.84 Encounter for antibody response examination (principal); E78.5 Hyperlipidemia, unspecified; R73.03 Prediabetes; E03.9 Hypothyroidism, unspecified; M25.50 Pain in unspecified joint; Z86.19 Personal history of other infectious and parasitic diseases
CPT/HCPCS: 36415; 82550; 83540; 83735; 85652; 86038